=== PATIENT | male | born 2000 | race Caucasian/White ===

== ENCOUNTER 2022-07-02 07:15 | Inpatient (IN) | payer OTHER ==
[2022-07-02] MEDS ORDERED: Boostrix 0.5 ML (Tdap) VIAL (>/=7 yrs of age) ONE (07:26)
[2022-07-02 07:56] LABS: Hemoglobin 16.6 g/dL (14.0-18.0); Mean Corpuscular HGB CONC 34.6 g/dL (32.0-36.0); Mean Corpuscular Volume 92.6 fL (78.0-98.0); Mean Platelet Volume 7.8 fL (7.4-10.4); Platelet Count 232 thou/uL (130-400); RBC Distribution Width 12.7 % (11.5-14.5); Red Blood Cell (RBC) Count 5.19 mill/uL (4.00-5.20); White Blood Cell (WBC) Count 22.6 thou/uL (4.8-10.8)
[2022-07-02 08:07] LABS: ALT (SGPT) 128 U/L (8-55); AST (SGOT) 174 U/L (5-34); Albumin 5.1 g/dL (3.5-5.0); Alkaline Phosphatase 51 U/L (50-130); Anion Gap 20 mmol/L (10-20); BUN (Urea Nitrogen) 10 mg/dL (8.9-20.6); Calc. Creatinine Clearance 0 mL/min (70-130); Calcium 8.8 mg/dL (7.8-10.44); Carbon Dioxide 19 mmol/L (22-29); Chloride 103 mmol/L (98-107); Estimated GFR 102; Glucose 131 mg/dL (70-105); Potassium 3.3 mmol/L (3.5-5.1); Protein, Total 8.1 g/dL (6.0-8.3); Sodium 139 mmol/L (136-145)
[2022-07-02 08:08] LABS: Specific Gravity, Urine 1.025 (1.005-1.030)
[2022-07-02 08:11] LABS: Amphetamine Detected (NotDetected); Barbiturates Screen Not Detected (NotDetected); Benzodiazepine Screen Not Detected (NotDetected); Clarity Hazy (Clear); Cocaine Metabolite Screen Detected (NotDetected); Leukocyte Unable to Interpret (Negative); Methadone Not Detected (NotDetected); Methamphetamine Detected (NotDetected); Opiate Screen Detected (NotDetected); Oxycodone Screen Not Detected (NotDetected); Phencyclidine (PCP) Not Detected (NotDetected); THC/Cannabinoid Screen Detected (NotDetected); Tricyclic Screen Not Detected (NotDetected)
[2022-07-02 08:12] LABS: Bilirubin Unable to Interpret (Negative); Blood, Urine Unable to Interpret (Negative); Glucose, Urine (Dipstick) Unable to Interpret mg/dL (Negative); Ketone, Urine Unable to Interpret mg/dL (Negative); Nitrite Unable to Interpret (Negative); Protein, Urine (Dipstick) Unable to Interpret mg/dL (Neg-Trace); Urobilinogen UNABLE TO INTERPRET mg/dL (Less than 2)
[2022-07-02 08:15] LABS: Bacteria/HPF 1+ HPF (None Seen); RBC/HPF Greater than 50 HPF (0-3); WBC/HPF 0-3 HPF (0-3)
[2022-07-02 08:18] LABS: Acetaminophen Less than 10.0 mcg/mL (10.0-30.0); Alcohol 163 mg/dL (Less than 10); Salicylate Less than 8.0 mg/dL (15.0-30.0)
[2022-07-02] MEDS ORDERED: Fentanyl 100 MCG/2 ML VIAL ONE (08:56)
[2022-07-02] MEDS ORDERED: Tranexamic Acid 1,000 MG in Sodium Chloride 0.9% 100 ML IVPB SCH (09:00)
[2022-07-02] MEDS ORDERED: Tranexamic Acid 1,000 MG in Sodium Chloride 0.9% 250 ML 250 ML IVPB SCH (09:00)
[2022-07-02 09:12] LABS: Band 9 % (5-11); Lymphocytes 8 % (28-48); MDiff Complete? YES; Monocytes 10 % (0-4); Neutrophil 73 % (31-61); Platelet Morphology Comment Appears Adequate; RBC Morphology Normal
[2022-07-02] MEDS ORDERED: Iopamidol-370 76% 500 ML 1 ML ONE (09:12)
[2022-07-02] MEDS ORDERED: Dextrose 5% in Water 1,000 ML IV PRN (09:29)
[2022-07-02] MEDS ORDERED: Dextrose 50% Abboject 50 ML SYRINGE SLOW IVP PRN (09:29)
[2022-07-02] MEDS ORDERED: TETANUS, DIPHTHERIA TOX,ADULT (TDVAX) 0.5 ML VIAL IM ONE (09:29)
[2022-07-02] MEDS ORDERED: Sodium Chloride 0.9% 1,000 ML IV SCH (09:30)
[2022-07-02] MEDS ORDERED: traMADol HCl 50 MG TAB PO PRN (09:32)
[2022-07-02 09:45] LABS: #Lymphocytes 0.7 thou/uL (1.20-3.40); #Monocytes 2.2 thou/uL (0.11-0.59); #Neutrophils 17.2 thou/uL (1.40-6.50); %Eosinophils 0.1 % (0.0-10.0); %Lymphocytes 3.3 % (28.0-48.0); %Neutrophils 85.5 % (31.0-61.0); Hemoglobin 15.8 g/dL (14.0-18.0); Mean Corpuscular HGB CONC 34.3 g/dL (32.0-36.0); Mean Corpuscular Hemoglobin 31.6 pg (25.0-35.0); Mean Corpuscular Volume 92.1 fL (78.0-98.0); Mean Platelet Volume 7.6 fL (7.4-10.4); Platelet Count 203 thou/uL (130-400); RBC Distribution Width 12.5 % (11.5-14.5); White Blood Cell (WBC) Count 20.1 thou/uL (4.8-10.8)
[2022-07-02 09:48] LABS: CK (CPK) 1859 U/L (30-200)
[2022-07-02] MEDS ORDERED: Lidocaine 2% PF 5 ML VIAL ONE (09:48)
[2022-07-02 09:49] LABS: Lipase 19 U/L (8-78)
[2022-07-02] MEDS ORDERED: Potassium Chloride 20 MEQ in Premix Bag 1 BAG IVPB SCH ×2 (11:00→16:15)
[2022-07-02] MEDS: Dexamethasone 4 mg/ml Vial SLOW IVP SCH ×2 (11:25→18:23)
[2022-07-02] MEDS: traMADol HCl 50 MG TAB PO SCH ×2 (11:26→18:22)
[2022-07-02 11:32] LABS: Hemoglobin 15.3 g/dL (14.0-18.0)
[2022-07-02 11:33] LABS: #Lymphocytes 0.4 thou/uL (1.20-3.40); #Monocytes 1.7 thou/uL (0.11-0.59); #Neutrophils 13.9 thou/uL (1.40-6.50); %Basophils 0.1 % (0.0-1.0); %Eosinophils 0.1 % (0.0-10.0); %Lymphocytes 2.7 % (28.0-48.0); %Monocytes 10.3 % (0.0-4.0); %Neutrophils 86.8 % (31.0-61.0); Hemoglobin 15.5 g/dL (14.0-18.0); Mean Corpuscular Hemoglobin 32.2 pg (25.0-35.0); Mean Platelet Volume 7.5 fL (7.4-10.4); Platelet Count 196 thou/uL (130-400); RBC Distribution Width 12.6 % (11.5-14.5); Red Blood Cell (RBC) Count 4.79 mill/uL (4.00-5.20)
[2022-07-02] MEDS: Ondansetron PF 4 MG/2 ML Vial IVP PRN ×2 (11:43→21:39)
[2022-07-02 11:53] VITALS: BMI 22.4
[2022-07-02 12:08] LABS: Calcium 9.1 mg/dL (7.8-10.44); Chloride 101 mmol/L (98-107); Potassium 3.6 mmol/L (3.5-5.1); Sodium 136 mmol/L (136-145)
[2022-07-02 12:09] LABS: Glucose 133 mg/dL (70-105)
[2022-07-02 12:10] LABS: Anion Gap 19 mmol/L (10-20); Carbon Dioxide 20 mmol/L (22-29)
[2022-07-02 12:12] LABS: Calc. Creatinine Clearance 142 mL/min (70-130); Estimated GFR 126; Phosphorus 3.8 mg/dL (2.3-4.7)
[2022-07-02 12:13] LABS: BUN (Urea Nitrogen) 10 mg/dL (8.9-20.6)
[2022-07-02 12:15] LABS: Magnesium 1.9 mg/dL (1.7-2.2)
[2022-07-02] MEDS: Morphine 2 MG/ML VIAL SLOW IVP PRN ×2 (12:43→21:28)
[2022-07-02] MEDS: hydrALAZINE 20 MG/ML VIAL SLOW IVP PRN ×2 (12:43→20:13)
[2022-07-02] MEDS: Sodium Chloride 0.9% 1,000 ML IV SCH ×2 (12:44→18:27)
[2022-07-02] MEDS: CEFAZOLIN 2 GM in Sodium Chloride 0.9% 100 ML IVPB SCH ×2 (14:24→21:21)
[2022-07-02] MEDS: Oxazepam 10 MG CAP PO SCH ×2 (14:24→21:22)
[2022-07-02] MEDS ORDERED: Amlodipine 10 MG TAB PO SCH (14:30)
[2022-07-02 16:03] LABS: #Lymphocytes 0.5 thou/uL (1.20-3.40); #Monocytes 1.5 thou/uL (0.11-0.59); #Neutrophils 16.3 thou/uL (1.40-6.50); %Basophils 0.1 % (0.0-1.0); %Eosinophils 0.1 % (0.0-10.0); %Lymphocytes 2.7 % (28.0-48.0); %Monocytes 8.1 % (0.0-4.0); %Neutrophils 89.1 % (31.0-61.0); Hemoglobin 14.3 g/dL (14.0-18.0); Mean Corpuscular Hemoglobin 32.2 pg (25.0-35.0); Mean Platelet Volume 7.9 fL (7.4-10.4); Platelet Count 225 thou/uL (130-400); RBC Distribution Width 12.6 % (11.5-14.5); Red Blood Cell (RBC) Count 4.45 mill/uL (4.00-5.20); White Blood Cell (WBC) Count 18.3 thou/uL (4.8-10.8)
[2022-07-02] MEDS ORDERED: Magnesium 2 GM/50 ML(in water) 2 GM in Premix Bag 1 BAG IVPB SCH (16:15)
[2022-07-02 16:27] LABS: SARS-CoV-2 NAA Rapid Test Not Detected (NotDetected)
[2022-07-02] MEDS: cloNIDine 0.1 MG TAB PO SCH (18:26)
[2022-07-02 19:40] LABS: #Lymphocytes 0.6 thou/uL (1.20-3.40); #Monocytes 1.5 thou/uL (0.11-0.59); #Neutrophils 11.9 thou/uL (1.40-6.50); %Lymphocytes 4.2 % (28.0-48.0); %Monocytes 10.8 % (0.0-4.0); Hemoglobin 14.3 g/dL (14.0-18.0); Mean Corpuscular HGB CONC 35.1 g/dL (32.0-36.0); Mean Corpuscular Hemoglobin 32.5 pg (25.0-35.0); Mean Corpuscular Volume 92.6 fL (78.0-98.0); Mean Platelet Volume 7.8 fL (7.4-10.4); Platelet Count 220 thou/uL (130-400); RBC Distribution Width 12.7 % (11.5-14.5)
[2022-07-02] MEDS: Famotidine/PF 20 mg/2ml Vial SLOW IVP SCH (21:22)
[2022-07-03] MEDS: traMADol HCl 50 MG TAB PO SCH ×5 (00:54→23:53)
[2022-07-03] MEDS: cloNIDine 0.1 MG TAB PO SCH ×2 (00:55→06:25)
[2022-07-03] MEDS: Sodium Chloride 0.9% 1,000 ML IV SCH (00:59)
[2022-07-03] MEDS: Dexamethasone 4 mg/ml Vial SLOW IVP SCH (03:53)
[2022-07-03 04:00] LABS: #Lymphocytes 0.7 thou/uL (1.20-3.40); #Monocytes 1.4 thou/uL (0.11-0.59); #Neutrophils 8.7 thou/uL (1.40-6.50); %Eosinophils 0.1 % (0.0-10.0); %Lymphocytes 6.5 % (28.0-48.0); %Monocytes 12.6 % (0.0-4.0); %Neutrophils 80.9 % (31.0-61.0); Hemoglobin 12.4 g/dL (14.0-18.0); Mean Corpuscular HGB CONC 34.7 g/dL (32.0-36.0); Mean Corpuscular Hemoglobin 31.8 pg (25.0-35.0); Mean Corpuscular Volume 91.6 fL (78.0-98.0); Mean Platelet Volume 7.8 fL (7.4-10.4); Platelet Count 191 thou/uL (130-400); RBC Distribution Width 12.6 % (11.5-14.5); White Blood Cell (WBC) Count 10.7 thou/uL (4.8-10.8)
[2022-07-03 04:10] LABS: INR-International Normal Ratio 1.2; Prothrombin Time 15.4 sec (12.0-14.7)
[2022-07-03 04:20] LABS: ALT (SGPT) 270 U/L (8-55); AST (SGOT) 215 U/L (5-34); Albumin 4.2 g/dL (3.5-5.0); Alkaline Phosphatase 44 U/L (50-130); Anion Gap 14 mmol/L (10-20); BUN (Urea Nitrogen) 11 mg/dL (8.9-20.6); Bilirubin, Direct 0.5 mg/dL (0.1-0.3); Bilirubin, Total 1.2 mg/dL (0.2-1.2); Calc. Creatinine Clearance 156 mL/min (70-130); Calcium 9.2 mg/dL (7.8-10.44); Carbon Dioxide 22 mmol/L (22-29); Chloride 103 mmol/L (98-107); Estimated GFR 130; Glucose 118 mg/dL (70-105); Phosphorus 3.4 mg/dL (2.3-4.7); Potassium 4.4 mmol/L (3.5-5.1); Protein, Total 6.8 g/dL (6.0-8.3); Sodium 135 mmol/L (136-145)
[2022-07-03] MEDS ORDERED: Sodium Chloride 0.9% 1,000 ML IV SCH (04:21)
[2022-07-03] MEDS: Oxazepam 10 MG CAP PO SCH ×3 (06:25→22:07)
[2022-07-03] MEDS: Famotidine/PF 20 mg/2ml Vial SLOW IVP SCH ×2 (09:05→22:07)
[2022-07-03] MEDS: Folic Acid 1 MG TAB PO SCH (09:05)
[2022-07-03] MEDS: Thiamine 100 MG TAB PO SCH (09:05)
[2022-07-03] MEDS: Senokot S 8.6-50 MG TAB PO SCH (22:05)
[2022-07-04] MEDS: traMADol HCl 50 MG TAB PO SCH ×5 (06:05→23:43)
[2022-07-04] MEDS: Oxazepam 10 MG CAP PO SCH ×3 (06:06→21:49)
[2022-07-04 06:20] LABS: #Lymphocytes 1.4 thou/uL (1.20-3.40); #Monocytes 1.1 thou/uL (0.11-0.59); #Neutrophils 5.8 thou/uL (1.40-6.50); %Basophils 0.5 % (0.0-1.0); %Eosinophils 0.5 % (0.0-10.0); %Lymphocytes 16.8 % (28.0-48.0); %Monocytes 12.6 % (0.0-4.0); %Neutrophils 69.7 % (31.0-61.0); Hemoglobin 9.8 g/dL (14.0-18.0); Mean Corpuscular HGB CONC 34.2 g/dL (32.0-36.0); Mean Corpuscular Hemoglobin 31.6 pg (25.0-35.0); Mean Corpuscular Volume 92.3 fL (78.0-98.0); Mean Platelet Volume 8.1 fL (7.4-10.4); Platelet Count 134 thou/uL (130-400); RBC Distribution Width 12.4 % (11.5-14.5); Red Blood Cell (RBC) Count 3.11 mill/uL (4.00-5.20); White Blood Cell (WBC) Count 8.4 thou/uL (4.8-10.8)
[2022-07-04 06:48] LABS: Anion Gap 14 mmol/L (10-20); BUN (Urea Nitrogen) 18 mg/dL (8.9-20.6); CK (CPK) 1127 U/L (30-200); Calc. Creatinine Clearance 137 mL/min (70-130); Carbon Dioxide 24 mmol/L (22-29); Chloride 100 mmol/L (98-107); Estimated GFR 127; Glucose 97 mg/dL (70-105); Magnesium 1.9 mg/dL (1.7-2.2); Phosphorus 2.3 mg/dL (2.3-4.7); Potassium 3.8 mmol/L (3.5-5.1); Sodium 134 mmol/L (136-145)
[2022-07-04] MEDS ORDERED: PHOS-NAK 1 PKT PACK PO SCH (09:00)
[2022-07-04] MEDS: Famotidine 20 MG TAB PO SCH ×2 (09:00→21:49)
[2022-07-04] MEDS: Polyethylene Glycol 3350 17 GM Packet PO SCH (09:01)
[2022-07-04] MEDS: Folic Acid 1 MG TAB PO SCH (09:01)
[2022-07-04] MEDS: Senokot S 8.6-50 MG TAB PO SCH ×2 (09:01→21:49)
[2022-07-04] MEDS: Thiamine 100 MG TAB PO SCH (09:01)
[2022-07-05] MEDS: traMADol HCl 50 MG TAB PO SCH ×3 (05:44→16:58)
[2022-07-05] MEDS: Oxazepam 10 MG CAP PO SCH ×2 (05:44→12:27)
[2022-07-05 06:37] LABS: #Eosinphils 0.1 thou/uL (0.0-0.7); #Monocytes 0.6 thou/uL (0.11-0.59); #Neutrophils 5.1 thou/uL (1.40-6.50); %Basophils 0.2 % (0.0-1.0); %Eosinophils 1.4 % (0.0-10.0); %Lymphocytes 14.8 % (28.0-48.0); %Monocytes 8.8 % (0.0-4.0); %Neutrophils 74.9 % (31.0-61.0); Mean Corpuscular Hemoglobin 31.6 pg (25.0-35.0); Mean Corpuscular Volume 92.9 fL (78.0-98.0); Mean Platelet Volume 8.1 fL (7.4-10.4); Platelet Count 138 thou/uL (130-400); RBC Distribution Width 12.2 % (11.5-14.5); Red Blood Cell (RBC) Count 3.17 mill/uL (4.00-5.20); White Blood Cell (WBC) Count 6.8 thou/uL (4.8-10.8)
[2022-07-05 07:09] LABS: Anion Gap 16 mmol/L (10-20); BUN (Urea Nitrogen) 17 mg/dL (8.9-20.6); Calc. Creatinine Clearance 149 mL/min (70-130); Calcium 9.4 mg/dL (7.8-10.44); Carbon Dioxide 22 mmol/L (22-29); Chloride 100 mmol/L (98-107); Estimated GFR 130; Glucose 79 mg/dL (70-105); Magnesium 1.8 mg/dL (1.7-2.2); Phosphorus 3.2 mg/dL (2.3-4.7); Potassium 3.8 mmol/L (3.5-5.1); Sodium 134 mmol/L (136-145)
[2022-07-05] MEDS ORDERED: Magnesium 2 GM/50 ML(in water) 2 GM in Premix Bag 1 BAG IVPB SCH (08:00)
[2022-07-05] MEDS ORDERED: Ferrous Sulfate 325 MG TAB PO SCH (09:00)
[2022-07-05] MEDS ORDERED: Ascorbic Acid 500 mg Chewable Tablet PO SCH (09:00)
[2022-07-05] MEDS: Polyethylene Glycol 3350 17 GM Packet PO SCH (09:36)
[2022-07-05] MEDS: Senokot S 8.6-50 MG TAB PO SCH (09:36)
[2022-07-05] MEDS: Folic Acid 1 MG TAB PO SCH (09:37)
[2022-07-05] MEDS: Thiamine 100 MG TAB PO SCH (09:37)
[2022-07-05] MEDS: Famotidine 20 MG TAB PO SCH (09:37)
[2022-07-05 16:55] VITALS: BP 141/83; TEMP 98.4
== END 2022-07-05 17:35 | disposition home or self-care (01) | DRG 964 ==
LOC: ERS 07:15 → CCU 10:11 → SURG A 07-03 11:57
PROVIDERS: ADMIT Surgery; ATTEND Surgery
PROC: 0HQFXZZ Repair Right Hand Skin, External Approach (ICD-10-PCS; principal; 2022-07-02)
DX: S36.116A Major laceration of liver, initial encounter (principal); Z20.822 Contact with and (suspected) exposure to COVID-19; Z23 Encounter for immunization; S37.031A Laceration of right kidney, unspecified degree, initial encounter; D62 Acute posthemorrhagic anemia; S02.31XA Fracture of orbital floor, right side, initial encounter for closed fracture; S02.40CA Maxillary fracture, right side, initial encounter for closed fracture; S37.812A Contusion of adrenal gland, initial encounter; S70.212A Abrasion, left hip, initial encounter; S90.812A Abrasion, left foot, initial encounter; S90.811A Abrasion, right foot, initial encounter; F10.129 Alcohol abuse with intoxication, unspecified; Y90.6 Blood alcohol level of 120-199 mg/100 ml; S02.2XXA Fracture of nasal bones, initial encounter for closed fracture; E87.5 Hyperkalemia; D72.829 Elevated white blood cell count, unspecified; F14.10 Cocaine abuse, uncomplicated; F15.10 Other stimulant abuse, uncomplicated; T79.6XXA Traumatic ischemia of muscle, initial encounter; S61.411A Laceration without foreign body of right hand, initial encounter; V49.50XA Passenger injured in collision with unspecified motor vehicles in traffic accident, initial encounter; Y92.410 Unspecified street and highway as the place of occurrence of the external cause
CPT/HCPCS: 12001; 36415; 70450; 70486; 71045; 71260; 72125; 72170; 74177; 80048; 80053; 80076; 80306; 80307; 81003; 81015; 82550; 83690; 83735; 84100; 85025; 85384; 85610; 85730; 86850; 86900; 86901; 90471; 90715; 93005; 94760; 96374; 96375; G0390; J0360; J0690; J1100; J2001; J2270; J2405; J3010; J3475; J3480; J3490; J7050; Q9967; S0028; U0002